=== PATIENT | female | born 1970 | race Hispanic/Latino ===

== ENCOUNTER 2021-01-10 11:44 | Emergency (ER) | payer BC, SELFPAY ==
--- NOTE | 2021-01-10 11:47 | ED.SKABFB ---
HPI - Skin/Abscess/Foreign Bdy General Chief complaint: Skin/Abscess/Foreign Body Stated complaint: pos skin infection Time Seen by Provider: 01/10/21 12:05 Source: patient and RN notes reviewed Mode of arrival: ambulatory Limitations: no limitations History of Present Illness HPI narrative: 50-year-old female presents concern for a red painful itchy area on the fourth digit of her left hand. Reports been there for over a week and keeps getting worse. She denies any drainage from the area. Reports she is been keeping it covered with a Band-Aid and Neosporin. She denies any decrease time, sensation, range of motion. Denies any other area of rash, open skin. MD complaint: other (Paronychia) Related Data Home Medications Medication Instructions Recorded Confirmed aspirin 81 mg PO DAILY 01/10/21 01/10/21 esomeprazole magnesium [Nexium] mg 01/10/21 topiramate 01/10/21 Allergies Allergy/AdvReac Type Severity Reaction Status Date / Time codeine Allergy Mild RASH, N/V Verified 01/10/21 11:54 Sulfa (Sulfonamide Allergy Mild Rash Verified 01/10/21 11:54 Antibiotics) iodine AdvReac Unknown N/V Verified 01/10/21 11:54 latex AdvReac Unknown Rash Verified 01/10/21 11:54 SEAFOOD Allergy Mild N/V Uncoded 01/10/21 11:54 Review of Systems Review of Systems: CONSTITUTIONAL: Denies malaise, chills, sweats, or fever. SKIN: Reports red, painful, itchy area below the nail of the fourth digit of the left hand. MUSCULOSKELETAL: Denies muscle skeletal pain, decreased range of motion NEUROLOGIC: Denies numbness, weakness All systems reviewed & are unremarkable except as noted in HPI and below PMFSH Comments At time of signature, agree with nursing past medical, surgical, social and family history. There is no relevant family history pertinent to the presenting complaint Exam Narrative: GENERAL: Well-appearing, well-nourished, and in no acute distress. HEAD: Normocephalic, atraumatic. EYES: PERRLA, conjunctivae clear ENT: Mucous membranes moist NECK: Supple. No lymphadenopathy CHEST: Clear to auscultation. No respiratory distress. HEART: Regular rate and rhythm. SKIN: Warm, dry. 1.5 cm x 0.5 cm area of erythematous excoriation, plaque proximal to the nailbed of the fourth digit of left hand, not involving nailbed, no fluctuation noted. NEURO: Alert and oriented x3. PSYCH: Normal mood and affect Course Course Emergency Course: Patient is aware of diagnosis, understands and agrees to treatment plan. Anticipatory guidance given. Patient agrees to follow-up as directed and is aware of reasons to seek care at the emergency department. Portions of this record may have been created with voice recognition software Vital Signs Vital signs: Reviewed. MDM - Skin/Abscess/Foreign Bdy MDM Narrative Medical decision making narrative: Exam findings Show no acute concerns or changes; patient is non-toxic appearing and is in no distress. Patient is appropriate for outpatient treatment and follow-up. Differential Diagnosis Differential diagnosis: Likely abscess of skin or subcutaneous tissue, herpes zoster, cellulitis, eczema, impetigo, contact dermatitis and other Critical Care Time Critical Care Time Critical Care Time: No Discharge Plan Discharge Clinical Impression: Paronychia Patient Disposition: Home, Self-Care Condition: Stable Instructions: Antibiotic Form, Paronychia (ED), Tinea Corporis (ED) Additional Instructions: Soak your nail: Soak your nail in a mixture of equal parts vinegar and water 3 or 4 times each day. This will help decrease inflammation. Apply a warm compress: Soak a washcloth in warm water and place it on your nail. This will help decrease inflammation. Elevate: Raise your nail above the level of your heart as often as you can. This will help decrease swelling and pain. Prop your nail on pillows or blankets to keep it elevated comfortably. Apply prescribed cream for at least 2 weeks, you may need it up to t
[2021-01-10 11:51] VITALS: BP 147/72; PULSE 74; RESP 16; TEMP 36.3; O2SAT 99
== END 2021-01-10 12:24 | disposition home or self-care (01) ==
PROVIDERS: Emergency Provider Nurse Practitioner; PCP Family Medicine
DX: L03.012 Cellulitis of left finger (principal); Z79.82 Long term (current) use of aspirin
CPT/HCPCS: 99213; G0463

== ENCOUNTER → 2021-03-02 10:48 | Outpatient (CLI) | payer BC, SELFPAY ==
--- NOTE | ~2021-03-02 | MM_ITS ---
EXAMINATION: MM screening [facility] BI w jamison HISTORY: Screening mammogram TECHNIQUE: Craniocaudal and mediolateral oblique 3-D tomosynthesis images were obtained and synthetic 2-D images were generated. CAD analysis was submitted and interpreted. COMPARISON: 12/24/2018, 06/18/2018, 12/11/2017, 12/04/2017 BREAST PARENCHYMAL COMPOSITION: The breasts are heterogeneously dense, which may obscure small masses . FINDINGS: There is no evidence of suspicious mass, calcification, or architectural distortion to sugg est malignancy in either breast. There has been no suspicious interval change. IMPRESSION: 1. No mammographic evidence of malignancy. 2. Recommend routine screening mammography in one year. BI-RADS Category 1: Negative Reviewed, dictated and finalized at location [facility]
--- NOTE | ~2021-03-02 | DEXA_ITS ---
Bone Density Report Name: KD BELTRE Age: 51 Sex: Female Ethnicity: White Date of : 1970 Indication: postmenopausal; screening for osteoporosis; hysterectomy; Referring Provider: NATALIE, STEPHEN Study: Bone densitometry was performed. Exam Date: March 02, 2021 Accession number: [id number] Bone Density: Region BMD T-score Z-score Classification AP Spine (L1-L4) 1.120 0.7 1.5 Normal Femoral Neck (Left) 0.875 0.2 1.1 Normal Total Hip (Left) 1.097 1.3 1.8 Normal Femoral Neck (Right) 0.900 0.5 1.3 Normal Total Hip (Right) 1.133 1.6 2.1 Normal Total Hip Mean 1.115 1.5 2.0 Normal World Health Organization criteria for BMD impression classify patients as: Normal (T-score at or above -1.0), Osteopenia (T-score between -1.0 and -2.5), or Osteoporosis (T-score at or below -2.5). 10-year Fracture Risk: FRAX not reported because: All T-scores for Spine Total, Hip Total, Femoral Neck at or above -1.0 Clinical Information Provided by Patient: Has the following medical conditions: Hysterectomy Patient maximum height was 63 Menopause Age: 44 No regular weight bearing exercise Does not regularly consume dairy products Drinks caffeinated beverages Onset of menses at age 11 Number of children 0 Impression: The patient has normal bone mass. Discussion: BONE DENSITY IS ABOVE THE MINIMUM DESIRABLE LEVEL AT ALL SKELETAL SITES TESTED. This patient?s bone mineral density is above the minimum desirable level (T-score -1.0 or better) at all sites measured. The patient should follow a healthful lifestyle (good nutrition with adequate calcium and vitamin D, and appropriate weight-bearing exercise). Follow-Up: Consider repeating this study in 5 years or sooner if there is some new clinical indication. Reported by: [facility] on 03/02/2021 10:59:00 AM. Reviewed, dictated and finalized at location ABetzaida LEBLANC
== END ==
PROVIDERS: PCP Family Medicine; Visit Provider Nurse Practitioner
DX: Z12.31 Encounter for screening mammogram for malignant neoplasm of breast (principal); Z13.820 Encounter for screening for osteoporosis; Z78.0 Asymptomatic menopausal state
CPT/HCPCS: 77063; 77067; 77080